=== PATIENT | female | born 1965 | race American Indian/Alaskan Native ===

== ENCOUNTER 2021-07-28 13:50 | Observation (INO) | payer MEDICARE ==
--- NOTE | 2021-07-28 14:26 | Cat Scan Report ---
CT head/brain wo con INDICATION / CLINICAL INFORMATION: 55 years Female; CODE STROKE CALL [phone] Aphasia. TECHNIQUE: Routine CT head without contrast. All CT scans at this location are performed using CT dos e reduction for ALARA by means of automated exposure control. COMPARISON: None. FINDINGS: BRAIN / INTRACRANIAL CONTENTS: The brain appears to demonstrate appropriate attenuation for age. The ventricular system is within normal limits in size and configuration. There is no clear CT evidence o f acute intracranial hemorrhage or significant mass effect. ORBITS: No significant abnormality of visualized orbits. SINUSES / MASTOIDS: There is mild mucosal thickening along the posterior right maxillary sinus. CRANIOCERVICAL JUNCTION: No significant abnormality. ADDITIONAL FINDINGS: None. IMPRESSION: 1. There is no CT evidence of acute intracranial process. The study was specified as code stroke and called emergently to Dr. Davidson in the ER at 1:19 PM Central standard time. Signer Name: Clint Cruz MD Signed: 07/28/2021 2:22 PM Workstation Name: [id number]
--- NOTE | 2021-07-28 15:03 | Consultation ---
Medications and Allergies Allergies Allergy/AdvReac Type Severity Reaction Status Date / Time No Known Allergies Allergy Unverified 07/28/21 13:56 Physical Examination - Vital Signs Vital Signs: Vital Signs Temp Pulse Resp BP Pulse Ox 98 F 106 H 16 130/77 91 07/28/21 14:00 07/28/21 14:00 07/28/21 14:00 07/28/21 14:00 07/28/21 14:00 Assessment and Plan [facility] Consult Note # Demographics Consult Type: Acute Stroke Level 2 (4.5-24 hrs) Patient Location: Emergency Room First Name: Mia Last Name: Jhonny Age: 55 Gender: Female Facility: [facility] Time of Initial Page ( Time): 07/28/2021, 13:33 Time of Return Call ( Time): 07/28/2021, 13:33 # HPI Handedness: Left History: 55F Unknown last well reportedly. She says she does not know what is going on. EMS says patient not speaking and bilateral weakness. Equal strength reported by EMS. No evidence of aphasia. Patient reports feeling nausea. # Scores Time of exam and NIHSS ( Time): 07/28/2021, 13:51 Level of Consciousness 1a: [0] = Alert; keenly responsive LOC Questions 1b: [2] = Answers neither correctly LOC Commands 1c: [0] = Performs both tasks correctly Best Gaze 2: [0] = Normal Visual 3: [0] = No visual loss Facial Palsy 4: [0] = Normal symmetrical movements Motor Arm Left 5a: [0] = No drift Motor Arm Right 5b: [0] = No drift Motor Leg Left 6a: [1] = Drift Motor Leg Right 6b: [1] = Drift Limb Ataxia 7: [0] = Absent Sensory 8: [0] = Normal Best Language 9: [0] = No aphasia Dysarthria 10: [0] = Normal Extinction and Inattention 11: [0] = No abnormality NIHSS Total: 4 VAN Screening: Negative # Exam SBP: 148 DBP: 82 # Data Glucose: 207 per EMS # Assessment Impression: Altered Mental Status no clear evidence of stroke, could be encephalopathy due to toxic/metabolic/infectious etiologies. # Plan Thrombolytic/Intervention: NOT IV Thrombolysis or IA Intervention candidate Thrombolytic Exclusion (< 3 hour window): time of onset unclear Thrombolytic Exclusion: > 4.5 hours Intraarterial Exclusion: clinically not consistent with stroke Labs: B12 CBC comprehensive metabolic panel TSH urine drug screen ua Additional Recommendations: If no general medical etiology found or not improivng with medical treamtent, consider MRI brain. Disposition: admit # Logistics Telemedicine: Interactive 2 way audio and visual telecommunication technology was utilized during this visit
[2021-07-28] MEDS ORDERED: SODIUM CHLORIDE 0.9% 1000 ML 1,000 ML IV ONE ×2 (15:55→19:19)
[2021-07-28 16:23] LABS: Basophils # (Auto) 0.1 K/mm3 (0.0-0.1); Basophils % (Auto) 0.7 % (0.0-1.8); Eosinophils # (Auto) 0.1 K/mm3 (0.0-0.4); Eosinophils % (Auto) 0.6 % (0.0-4.3); Hematocrit 37.1 % (30.3-42.9); Hemoglobin 11.8 gm/dl (10.1-14.3); Lymphocytes # (Auto) 1.1 K/mm3 (1.2-5.4); Lymphocytes % (Auto) 9.7 % (13.4-35.0); Mean Corpuscular HGB Conc 32 % (30-34); Mean Corpuscular Volume 87 fl (79-97); Monocytes # (Auto) 0.6 K/mm3 (0.0-0.8); Monocytes % (Auto) 5.8 % (0.0-7.3); Platelet Count 490 K/mm3 (140-440); Red Blood Count 4.29 M/mm3 (3.65-5.03); Red Cell Distribution Width 14.9 % (13.2-15.2)
--- NOTE | 2021-07-28 16:28 | XRay Report ---
CHEST 1 VIEW 07/28/2021 3:23 PM INDICATION / CLINICAL INFORMATION: AMS. COMPARISON: None available. FINDINGS: SUPPORT DEVICES: None. HEART / MEDIASTINUM: No significant abnormality. LUNGS / PLEURA: No significant pulmonary or pleural abnormality. No pneumothorax. ADDITIONAL FINDINGS: No significant additional findings. IMPRESSION: 1. No acute findings. Signer Name: Anders Ceja MD Signed: 07/28/2021 4:24 PM Workstation Name: [id number]
[2021-07-28 16:41] LABS: INR 0.91 (0.87-1.13)
[2021-07-28 16:42] LABS: Partial Thromboplastin Time 24.5 Sec. (24.2-36.6)
[2021-07-28 16:43] LABS: Alanine Aminotransferase 12 units/L (7-56); Albumin 4.2 g/dL (3.9-5); BUN/Creatinine Ratio 8; Blood Urea Nitrogen 7 mg/dL (7-17); Calcium 9.8 mg/dL (8.4-10.2); Hemolysis Index 4
--- NOTE | 2021-07-28 17:53 | Emergency Department Report ---
HPI - General Chief Complaint: Altered Mental Status Time Seen by Provider: 07/28/21 15:44 - HPI HPI: 55-year-old female with no known past medical history brought in by EMS from home due to altered mental status. Apparently this s around noon today. She has had a cough for a few days. She apparently became confused per her family and so 911 was called. There is no family contact information in the chart. The patient is somnolent but awake and oriented to person place and time but not to situation and does not know why she is in the emergency department and seems very confused. She says she has had a cough but denies any other complaints at this time. However, details of the HPI are highly limited due to the patient's current clinical condition. Her Covid vaccination status is unknown. ED Past Medical Hx - Past Medical History Previous Medical History?: Yes - Social History Smoking Status: Current Every Day Smoker Substance Use Type: None - Medications Home Medications: Home Medications Medication Instructions Recorded Confirmed Last Taken Type FLUoxetine HCL [PROzac] 80 mg PO QDAY 07/29/21 07/29/21 07/27/21 History Glycopyrrolate 2 mg PO QDAY 07/29/21 07/29/21 07/27/21 History Propranolol HCl 20 mg PO TID 07/29/21 07/29/21 07/27/21 History Sulfamethoxazole/Trimethoprim 1 each PO BID 2 Days #4 tab 07/29/21 Unknown Rx [Bactrim DS TAB] cloZAPine 400 mg PO QHS 07/29/21 07/29/21 07/27/21 History clonazePAM [ Klonopin] 0.5 mg PO QHS 07/29/21 07/29/21 07/27/21 History metFORMIN [Glucophage] 500 mg PO BID 07/29/21 07/29/21 07/27/21 History ED Review of Systems ROS: Stated complaint: ALTERED MENTAL STATUS Other details as noted in HPI Comment: Unobtainable due to pts medical conditions Physical Exam - Physical Exam Vital Signs: Vital Signs 07/28/21 07/28/21 07/28/21 13:50 14:00 15:24 Temperature 98 F 97.3 F L Pulse Rate 106 H 96 H Respiratory 16 13 Rate Blood Pressure 101/75 Blood Pressure 130/77 [Right] O2 Sat by Pulse 96 91 97 Oximetry 07/28/21 15:53 Temperature 98.7 F Pulse Rate 76 Respiratory 14 Rate Blood Pressure Blood Pressure 112/74 [Right] O2 Sat by Pulse 97 Oximetry Physical Exam: GENERAL: Well developed and well nourished. Somnolent but arousable. HEAD: Normocephalic. No obvious signs of trauma. ENT: Dry mucous membranes. EYES: Extraocular movements are intact. Pupils are equal round and reactive to light bilaterally NECK: Supple. Full ROM is intact. Trachea is midline. LUNGS: Nonlabored breathing. Equal chest rise bilaterally. Clear to auscultation bilaterally. CARDIOVASCULAR: Regular rate and rhythm. No murmurs or rubs. VASCULAR: Cap refill < 2 seconds ABDOMEN: Abdomen is soft and nondistended. There is no significant tenderness, guarding or rebound. SKIN: Skin is warm and dry NEURO: Patient is somnolent but easily arousable to loud voice. She is oriented to person place and time but not to situation. She seems to be confused in conversation. potato spotter II-XII grossly intact. No focal deficits. Normal motor and sensory exam throughout. Normal speech. MUSCULOSKELETAL: No obvious deformities. No significant tenderness. Normal ROM throughout. BACK/SPINE: No midline tenderness or step-offs of the C/T/L spine. No costovertebral angle tenderness. ED Course Vital Signs 07/28/21 07/28/21 07/28/21 13:50 14:00 15:24 Temperature 98 F 97.3 F L Pulse Rate 106 H 96 H Respiratory 16 13 Rate Blood Pressure 101/75 Blood Pressure 130/77 [Right] O2 Sat by Pulse 96 91 97 Oximetry 07/28/21 15:53 Temperature 98.7 F Pulse Rate 76 Respiratory 14 Rate Blood Pressure Blood Pressure 112/74 [Right] O2 Sat by Pulse 97 Oximetry ED Medical Decision Making - Lab Data Result diagrams: 07/28/21 16:02 07/29/21 04:33 Lab Results 07/28/21 07/28/21 07/28/21 Range/Units 16:02 16:02 16:02 WBC 11.1 H (4.5-11.0) K/mm3 RBC 4.29 (3.65-5.03) M/mm3 Hgb 11.8 (10.1-14.3) gm/dl Hct 37.1 (30.3-42.9) % MCV 87 (79-97) fl MCH 28 (28-32) pg MCHC 32 (30-34) % RDW 14.9 (13.2-15.2) % Plt Count 490 H (140-440) K/mm3 Lymph % (Auto) 9.7 L (13.4-35.0) % [place] % (Auto) 5.8 (0.0-7.3) % Eos % (Auto) 0.6 (0.0-4.3) % Baso % (Auto) 0.7 (0.0-1.8) % Lymph # (Auto) 1.1 L (1.2-5.4) K/mm3 [place] # (Auto) 0.6 (0.0-0.8) K/mm3 Eos # (Auto) 0.1 (0.0-0.4) K/mm3 Baso # (Auto) 0.1 (0.0-0.1) K/mm3 Seg Neutrophils % 83.2 H (40.0-70.0) % Seg Neutrophils # 9.3 H (1.8-7.7) K/mm3 PT 13.3 (12.2-14.9) Sec. INR 0.91 (0.87-1.13) APTT 24.5 (24.2-36.6) Sec. Sodium 140 (137-145) mmol/L Potassium 4.2 (3.6-5.0) mmol/L Chloride 102.5 (98-107) mmol/L Carbon Dioxide 23 (22-30) mmol/L Anion Gap 19 mmol/L BUN 7 (7-17) mg/dL Creatinine 0.9 (0.6-1.2) mg/dL Estimated GFR > 60 ml/min BUN/Creatinine Ratio 8 % Glucose 79 (65-100) mg/dL POC Glucose (70-105) mg/dL Calcium 9.8 (8.4-10.2) mg/dL Magnesium (1.7-2.3) mg/dL Total Bilirubin < 0.20 (0.1-1.2) mg/dL AST 15 (5-40) units/L ALT 12 (7-56) units/L Alkaline Phosphatase 88 (35-129) units/L Ammonia (25-60) umol/L Troponin T (0.00-0.029) ng/mL NT-Pro-B Natriuret Pep (0-900) pg/mL Total Protein 6.9 (6.3-8.2) g/dL Albumin 4.2 (3.9-5) g/dL Albumin/Globulin Ratio 1.6 % Lipase (13-60) units/L Urine Color (Yellow) Urine Turbidity (Clear) Urine pH (5.0-7.0) Ur Specific [place] (1.003-1.030) Urine Protein (Negative) mg/dL Urine Glucose (UA) (Negative) mg/dL Urine Ketones (Negative) mg/dL Urine Blood (Negative) Urine Nitrite (Negative) Urine Bilirubin (Negative) Urine Urobilinogen (<2.0) mg/dL Ur Leukocyte Esterase (Negative) Urine WBC (Auto) (0.0-6.0) /HPF Urine RBC (Auto) (0.0-6.0) /HPF U Epithel Cells (Auto) (0-13.0) /HPF Urine Bacteria (Auto) (Negative) /HPF Urine WBC Clumps /HPF Urine Mucus /HPF Urine Yeast (Budding) /HPF Acetaminophen (10.0-30.0) ug/mL Plasma/Serum Alcohol (0-0.07) % 07/28/21 07/28/21 07/28/21 Range/Units 16:02 16:02 16:02 WBC (4.5-11.0) K/mm3 RBC (3.65-5.03) M/mm3 Hgb (10.1-14.3) gm/dl Hct (30.3-42.9) % MCV (79-97) fl MCH (28-32) pg MCHC (30-34) % RDW (13.2-15.2) % Plt Count (140-440) K/mm3 Lymph % (Auto) (13.4-35.0) % [place] % (Auto) (0.0-7.3) % Eos % (Auto) (0.0-4.3) % Baso % (Auto) (0.0-1.8) % Lymph # (Auto) (1.2-5.4) K/mm3 [place] # (Auto) (0.0-0.8) K/mm3 Eos # (Auto) (0.0-0.4) K/mm3 Baso # (Auto) (0.0-0.1) K/mm3 Seg Neutrophils % (40.0-70.0) % Seg Neutrophils # (1.8-7.7) K/mm3 PT (12.2-14.9) Sec. INR (0.87-1.13) APTT (24.2-36.6) Sec. Sodium (137-145) mmol/L Potassium (3.6-5.0) mmol/L Chloride (98-107) mmol/L Carbon Dioxide (22-30) mmol/L Anion Gap mmol/L BUN (7-17) mg/dL Creatinine (0.6-1.2) mg/dL Estimated GFR ml/min BUN/Creatinine Ratio % Glucose (65-100) mg/dL POC Glucose (70-105) mg/dL Calcium (8.4-10.2) mg/dL Magnesium 1.90 (1.7-2.3) mg/dL Total Bilirubin (0.1-1.2) mg/dL AST (5-40) units/L ALT (7-56) units/L Alkaline Phosphatase (35-129) units/L Ammonia 23.0 L (25-60) umol/L Troponin T < 0.010 (0.00-0.029) ng/mL NT-Pro-B Natriuret Pep 28.00 (0-900) pg/mL Total Protein (6.3-8.2) g/dL Albumin (3.9-5) g/dL Albumin/Globulin Ratio % Lipase 28 (13-60) units/L Urine Color (Yellow) Urine Turbidity (Clear) Urine pH (5.0-7.0) Ur Specific [place] (1.003-1.030) Urine Protein (Negative) mg/dL Urine Glucose (UA) (Negative) mg/dL Urine Ketones (Negative) mg/dL Urine Blood (Negative) Urine Nitrite (Negative) Urine Bilirubin (Negative) Urine Urobilinogen (<2.0) mg/dL Ur Leukocyte Esterase (Negative) Urine WBC (Auto) (0.0-6.0) /HPF Urine RBC (Auto) (0.0-6.0) /HPF U Epithel Cells (Auto) (0-13.0) /HPF Urine Bacteria (Auto) (Negative) /HPF Urine WBC Clumps /HPF Urine Mucus /HPF Urine Yeast (Budding) /HPF Acetaminophen 5.0 L (10.0-30.0) ug/mL Plasma/Serum Alcohol (0-0.07) % 07/28/21 07/28/21 07/28/21 Range/Units 16:02 16:54 18:19 WBC (4.5-11.0) K/mm3 RBC (3.65-5.03) M/mm3 Hgb (10.1-14.3) gm/dl Hct (30.3-42.9) % MCV (79-97) fl MCH (28-32) pg MCHC (30-34) % RDW (13.2-15.2) % Plt Count (140-440) K/mm3 Lymph % (Auto) (13.4-35.0) % [place] % (Auto) (0.0-7.3) % Eos % (Auto) (0.0-4.3) % Baso % (Auto) (0.0-1.8) % Lymph # (Auto) (1.2-5.4) K/mm3 [place] # (Auto) (0.0-0.8) K/mm3 Eos # (Auto) (0.0-0.4) K/mm3 Baso # (Auto) (0.0-0.1) K/mm3 Seg Neutrophils % (40.0-70.0) % Seg Neutrophils # (1.8-7.7) K/mm3 PT (12.2-14.9) Sec. INR (0.87-1.13) APTT (24.2-36.6) Sec. Sodium (137-145) mmol/L Potassium (3.6-5.0) mmol/L Chloride (98-107) mmol/L Carbon Dioxide (22-30) mmol/L Anion Gap mmol/L BUN (7-17) mg/dL Creatinine (0.6-1.2) mg/dL Estimated GFR ml/min BUN/Creatinine Ratio % Glucose (65-100) mg/dL POC Glucose 78 82 (70-105) mg/dL Calcium (8.4-10.2) mg/dL Magnesium (1.7-2.3) mg/dL Total Bilirubin (0.1-1.2) mg/dL AST (5-40) units/L ALT (7-56) units/L Alkaline Phosphatase (35-129) units/L Ammonia (25-60) umol/L Troponin T (0.00-0.029) ng/mL NT-Pro-B Natriuret Pep (0-900) pg/mL Total Protein (6.3-8.2) g/dL Albumin (3.9-5) g/dL Albumin/Globulin Ratio % Lipase (13-60) units/L Urine Color (Yellow) Urine Turbidity (Clear) Urine pH (5.0-7.0) Ur Specific [place] (1.003-1.030) Urine Protein (Negative) mg/dL Urine Glucose (UA) (Negative) mg/dL Urine Ketones (Negative) mg/dL Urine Blood (Negative) Urine Nitrite (Negative) Urine Bilirubin (Negative) Urine Urobilinogen (<2.0) mg/dL Ur Leukocyte Esterase (Negative) Urine WBC (Auto) (0.0-6.0) /HPF Urine RBC (Auto) (0.0-6.0) /HPF U Epithel Cells (Auto) (0-13.0) /HPF Urine Bacteria (Auto) (Negative) /HPF Urine WBC Clumps /HPF Urine Mucus /HPF Urine Yeast (Budding) /HPF Acetaminophen (10.0-30.0) ug/mL Plasma/Serum Alcohol < 0.01 (0-0.07) % // Range/Units Unknown WBC (4.5-11.0) K/mm3 RBC (3.65-5.03) M/mm3 Hgb (10.1-14.3) gm/dl Hct (30.3-42.9) % MCV (79-97) fl MCH (28-32) pg MCHC (30-34) % RDW (13.2-15.2) % Plt Count (140-440) K/mm3 Lymph % (Auto) (13.4-35.0) % [place] % (Auto) (0.0-7.3) % Eos % (Auto) (0.0-4.3) % Baso % (Auto) (0.0-1.8) % Lymph # (Auto) (1.2-5.4) K/mm3 [place] # (Auto) (0.0-0.8) K/mm3 Eos # (Auto) (0.0-0.4) K/mm3 Baso # (Auto) (0.0-0.1) K/mm3 Seg Neutrophils % (40.0-70.0) % Seg Neutrophils # (1.8-7.7) K/mm3 PT (12.2-14.9) Sec. INR (0.87-1.13) APTT (24.2-36.6) Sec. Sodium (137-145) mmol/L Potassium (3.6-5.0) mmol/L Chloride (98-107) mmol/L Carbon Dioxide (22-30) mmol/L Anion Gap mmol/L BUN (7-17) mg/dL Creatinine (0.6-1.2) mg/dL Estimated GFR ml/min BUN/Creatinine Ratio % Glucose (65-100) mg/dL POC Glucose (70-105) mg/dL Calcium (8.4-10.2) mg/dL Magnesium (1.7-2.3) mg/dL Total Bilirubin (0.1-1.2) mg/dL AST (5-40) units/L ALT (7-56) units/L Alkaline Phosphatase (35-129) units/L Ammonia (25-60) umol/L Troponin T (0.00-0.029) ng/mL NT-Pro-B Natriuret Pep (0-900) pg/mL Total Protein (6.3-8.2) g/dL Albumin (3.9-5) g/dL Albumin/Globulin Ratio % Lipase (13-60) units/L Urine Color Yellow (Yellow) Urine Turbidity Cloudy (Clear) Urine pH 5.0 (5.0-7.0) Ur Specific [place] 1.013 (1.003-1.030) Urine Protein <15 mg/dl (Negative) mg/dL Urine Glucose (UA) 150 (Negative) mg/dL Urine Ketones Neg (Negative) mg/dL Urine Blood Neg (Negative) Urine Nitrite Neg (Negative) Urine Bilirubin Neg (Negative) Urine Urobilinogen < 2.0 (<2.0) mg/dL Ur Leukocyte Esterase Sm (Negative) Urine WBC (Auto) 31.0 H (0.0-6.0) /HPF Urine RBC (Auto) 14.0 (0.0-6.0) /HPF U Epithel Cells (Auto) 10.0 (0-13.0) /HPF Urine Bacteria (Auto) 1+ (Negative) /HPF Urine WBC Clumps 2+ /HPF Urine Mucus Few /HPF Urine Yeast (Budding) 1+ /HPF Acetaminophen (10.0-30.0) ug/mL Plasma/Serum Alcohol (0-0.07) % - EKG Data -: EKG Interpreted by Me - EKG Data 07/28/21 20:49 Sinus tachycardia. Normal axis. Normal intervals. No ectopy. No significant ST segment or T wave abnormalities. - Radiology Data Radiology results: report reviewed - Medical Decision Making 55-year-old female brought in for acute onset of altered mental status. Patient was brought in by EMS and there is no family contact information available. Although the patient is oriented to person place and time she is not oriented to situation does not know why she is in the emergency department. Although she seems somnolent and confused she has a nonfocal neurologic exam. She is afebrile with normal vital signs with the exception of heart rate in the 90s. She has dry mucous membranes. She has no abdominal tenderness. Lungs are clear to auscultation. We will proceed with broad work-up with full set of labs, chest x-ray, EKG. Given the acute onset of the patient's symptoms CT of the head was ordered in triage to assess for evidence of stroke, bleed, or mass to explain the patient's acute onset of altered mental status. We will give 1 L of IV fluids for now and reassess Noncon CT of the head reveals no acute abnormalities. Labs reveal no significant leukocytosis or anemia. Creatinine is within normal limits and there are no significant electrolyte abnormalities. Troponin is negative. Chest x-ray reveals no acute abnormalities The nurse informed me that after straight cathing the patient she noted that the patient has very little urine but we will send it for urinalysis. I have ordered an additional 1 L of IV fluids Urinalysis reveals findings most consistent with urinary tract infection. I have ordered 1 dose of IV ceftriaxone. Given the patient's acute encephalopathy and the lack of family contact, we will proceed with admission for further management. Patient was signed out to Dr. Sewell Critical care attestation.: If time is entered above; I have spent that time in minutes in the direct care of this critically ill patient, excluding procedure time. ED Disposition Clinical Impression: UTI (urinary tract infection), Metabolic encephalopathy Disposition: 09 ADMITTED INPATIENT Is pt being admited?: Yes Condition: Stable
[2021-07-28 18:40] LABS: Bacteria,Urine 1+ /HPF (Negative); Bilirubin,Urine NEG (Negative); Blood,Urine NEG (Negative); Color,Urine Yellow (Yellow); Mucus,Urine FEW /HPF; Protein,Urine <15 mg/dL mg/dL (Negative); Urobilinogen,Urine < 2.0 mg/dL (<2.0)
[2021-07-28] MEDS ORDERED: cefTRIAXone/NS 2 GM/100 ML 2 GM/100 ML BAG IV ONE (20:11)
[2021-07-28] MEDS ORDERED: ONDANSETRON 4 MG/2 ML INJ IV PRN (23:31)
[2021-07-28] MEDS ORDERED: ACETAMINOPHEN 325 MG TAB PO PRN (23:31)
[2021-07-28] MEDS ORDERED: MAGNESIUM HYDROXIDE (MOM) ORAL LIQD UDC PO PRN (23:31)
[2021-07-28] MEDS ORDERED: MORPHINE 4 MG/1 ML INJ IV PRN (23:31)
[2021-07-28] MEDS ORDERED: MORPHINE 2 MG/1 ML INJ IV PRN (23:31)
--- NOTE | 2021-07-28 23:42 | History and Physical Report ---
History of Present Illness Date of examination: 07/28/21 Date of admission: 07/28/21 21:33 Chief complaint: Altered Mental Status History of present illness: 55-year-old female with no significant past medical history brought into the emergency room by EMS for evaluation of changes in mental status. Patient was said to have been having some mild cough during the day and later became confused. Family therefore called EMS. Most of the history was gotten from the ER staff as patient is still confused. Family members were were not available. Patient was able to state that she had some cough and chills. It is unclear whether patient is fully vaccinated against COVID-19. Work-up in the emergency room today, chest x-ray shows no acute findings. CT of the head showed no acute findings. Urinalysis however shows some UTI. Patient being admitted for acute encephalopathy. Past History Past Medical History: No medical history Past Surgical History: No surgical history Social history: smoking (Current daily smoker) Family history: no significant family history Medications and Allergies Allergies Allergy/AdvReac Type Severity Reaction Status Date / Time No Known Allergies Allergy Verified 07/28/21 23:38 Active Meds: Active Medications Acetaminophen (Acetaminophen 325 Mg Tab) 650 mg PO Q4H PRN PRN Reason: Pain MILD(1-3)/Fever >100.5/MCMULLEN Heparin Sodium (Porcine) (Heparin 5,000 Unit/1 Ml Vial) 5,000 unit SUB-Q Q8HR STEPHANIE Sodium Chloride (Nacl 0.9% 1000 Ml) 1,000 mls @ 125 mls/hr IV DIRECT STEPHANIE Ceftriaxone Sodium (Rocephin/Ns 1 Gm/50 Ml) 1 gm in 50 mls @ 100 mls/hr IV Q24H STEPHANIE; Protocol Magnesium Hydroxide (Magnesium Hydroxide (Mom) Oral Liqd Udc) 30 ml PO Q4H PRN PRN Reason: Constipation Morphine Sulfate (Morphine 2 Mg/1 Ml Inj) 2 mg IV Q4H PRN PRN Reason: Pain, Moderate (4-6) Morphine Sulfate (Morphine 4 Mg/1 Ml Inj) 4 mg IV Q4H PRN PRN Reason: Pain , Severe (7-10) Ondansetron HCl (Ondansetron 4 Mg/2 Ml Inj) 4 mg IV Q8H PRN PRN Reason: Nausea And Vomiting Sodium Chloride (Sodium Chloride 0.9% 10 Ml Flush Syringe) 10 ml IV BID STEPHANIE Sodium Chloride (Sodium Chloride 0.9% 10 Ml Flush Syringe) 10 ml IV PRN PRN PRN Reason: LINE FLUSH Review of Systems ROS unobtainable: due to mental status Exam - Constitutional Vitals: Temp Pulse Resp BP Pulse Ox 97.5 F L 77 16 116/72 97 07/28/21 18:31 07/28/21 18:31 07/28/21 18:31 07/28/21 18:31 07/28/21 18:31 General appearance: Present: no acute distress, well-nourished - EENT Eyes: Present: PERRL, EOM intact, scleral icterus ENT: hearing intact, clear oral mucosa, dentition normal - Neck Neck: Present: supple, normal ROM - Respiratory Respiratory effort: normal Respiratory: bilateral: CTA - Cardiovascular Rhythm: regular Heart Sounds: Present: S1 & S2. Absent: gallop, systolic murmur, diastolic m urmur, rub, click - Extremities Extremities: no ischemia, pulses intact, pulses symmetrical, No edema, normal temperature, Full ROM Peripheral Pulses: within normal limits - Abdominal General gastrointestinal: Present: soft, non-tender, non-distended, normal bowel sounds. Absent: mass - Integumentary Integumentary: Present: clear, warm, dry, normal turgor. Absent: rash - Musculoskeletal Musculoskeletal: strength equal bilaterally - Psychiatric Psychiatric: appropriate mood/affect, intact judgment & insight, memory intact, cooperative - Neurologic Neurologic: CNII-XII intact, no focal deficits, moves all extremities HEART Score - HEART Score Troponin: Troponin T < 0.010 ng/mL (0.00-0.029) 07/28/21 16:02 Results - Labs CBC & Chem 7: 07/28/21 16:02 07/28/21 16:02 Labs: Abnormal lab results 07/28/21 07/28/21 07/28/21 Range/Units 16:02 16:02 16:02 WBC 11.1 H (4.5-11.0) K/mm3 Plt Count 490 H (140-440) K/mm3 Lymph % (Auto) 9.7 L (13.4-35.0) % Lymph # (Auto) 1.1 L (1.2-5.4) K/mm3 Seg Neutrophils % 83.2 H (40.0-70.0) % Seg Neutrophils # 9.3 H (1.8-7.7) K/mm3 Ammonia 23.0 L (25-60) umol/L Urine WBC (Auto) (0.0-6.0) /HPF Acetaminophen 5.0 L (10.0-30.0) ug/mL 07/28/21 Range/Units Unknown WBC (4.5-11.0) K/mm3 Plt Count (140-440) K/mm3 Lymph % (Auto) (13.4-35.0) % Lymph # (Auto) (1.2-5.4) K/mm3 Seg Neutrophils % (40.0-70.0) % Seg Neutrophils # (1.8-7.7) K/mm3 Ammonia (25-60) umol/L Urine WBC (Auto) 31.0 H (0.0-6.0) /HPF Acetaminophen (10.0-30.0) ug/mL Assessment and Plan - Patient Problems (1) Metabolic encephalopathy Current Visit: Yes Status: Acute Plan to address problem: Possibly secondary to underlying infection. Will monitor mental status. (2) UTI (urinary tract infection) Current Visit: Yes Status: Acute Plan to address problem: Patient placed on empiric IV antibiotics. Will await urine culture results. (3) DVT prophylaxis Current Visit: Yes Status: Acute Plan to address problem: Patient placed on subcutaneous heparin. (4) Full code status Current Visit: Yes Status: Acute Plan to address problem: Patient is full code.
[2021-07-28] MEDS ORDERED: SODIUM CHLORIDE 0.9% 1000 ML 1,000 ML IV SCH (23:45)
[2021-07-29] MEDS: HEPARIN 5,000 UNIT/1 ML VIAL SUB-Q SCH ×2 (05:38→14:31)
[2021-07-29 06:19] LABS: INR 0.97 (0.87-1.13)
[2021-07-29 06:25] LABS: BUN/Creatinine Ratio 6; Blood Urea Nitrogen 5 mg/dL (7-17); Calcium 8.7 mg/dL (8.4-10.2); Hemolysis Index 1
--- NOTE | 2021-07-29 09:00 | Progress Note ---
Hospitalist Physical - Constitutional Vitals: Temp Pulse Resp BP Pulse Ox 98.0 F 98 H 16 118/69 98 07/29/21 08:21 07/29/21 08:21 07/29/21 08:21 07/29/21 08:21 07/29/21 08:21 General appearance: Present: no acute distress, well-nourished HEART Score - HEART Score Troponin: Troponin T < 0.010 ng/mL (0.00-0.029) 07/28/21 16:02 Results - Labs CBC & Chem 7: 07/28/21 16:02 07/29/21 04:33 Labs: Laboratory Last Values WBC 11.1 K/mm3 (4.5-11.0) H 07/28/21 16:02 RBC 4.29 M/mm3 (3.65-5.03) 07/28/21 16:02 Hgb 11.8 gm/dl (10.1-14.3) 07/28/21 16:02 Hct 37.1 % (30.3-42.9) 07/28/21 16:02 MCV 87 fl (79-97) 07/28/21 16:02 MCH 28 pg (28-32) 07/28/21 16:02 MCHC 32 % (30-34) 07/28/21 16:02 RDW 14.9 % (13.2-15.2) 07/28/21 16:02 Plt Count 490 K/mm3 (140-440) H 07/28/21 16:02 Lymph % (Auto) 9.7 % (13.4-35.0) L 07/28/21 16:02 [place] % (Auto) 5.8 % (0.0-7.3) 07/28/21 16:02 Eos % (Auto) 0.6 % (0.0-4.3) 07/28/21 16:02 Baso % (Auto) 0.7 % (0.0-1.8) 07/28/21 16:02 Lymph # (Auto) 1.1 K/mm3 (1.2-5.4) L 07/28/21 16:02 [place] # (Auto) 0.6 K/mm3 (0.0-0.8) 07/28/21 16:02 Eos # (Auto) 0.1 K/mm3 (0.0-0.4) 07/28/21 16:02 Baso # (Auto) 0.1 K/mm3 (0.0-0.1) 07/28/21 16:02 Seg Neutrophils % 83.2 % (40.0-70.0) H 07/28/21 16:02 Seg Neutrophils # 9.3 K/mm3 (1.8-7.7) H 07/28/21 16:02 PT 14.0 Sec. (12.2-14.9) 07/29/21 04:33 INR 0.97 (0.87-1.13) 07/29/21 04:33 APTT 24.5 Sec. (24.2-36.6) 07/28/21 16:02 Sodium 143 mmol/L (137-145) 07/29/21 04:33 Potassium 3.7 mmol/L (3.6-5.0) 07/29/21 04:33 Chloride 108.3 mmol/L (98-107) H 07/29/21 04:33 Carbon Dioxide 22 mmol/L (22-30) 07/29/21 04:33 Anion Gap 16 mmol/L 07/29/21 04:33 BUN 5 mg/dL (7-17) L 07/29/21 04:33 Creatinine 0.8 mg/dL (0.6-1.2) 07/29/21 04:33 Estimated GFR > 60 ml/min 07/29/21 04:33 BUN/Creatinine Ratio 6 % 07/29/21 04:33 Glucose 86 mg/dL (65-100) 07/29/21 04:33 POC Glucose 104 mg/dL (70-105) 07/29/21 08:24 Calcium 8.7 mg/dL (8.4-10.2) 07/29/21 04:33 Magnesium 1.90 mg/dL (1.7-2.3) 07/28/21 16:02 Total Bilirubin < 0.20 mg/dL (0.1-1.2) 07/28/21 16:02 AST 15 units/L (5-40) 07/28/21 16:02 ALT 12 units/L (7-56) 07/28/21 16:02 Alkaline Phosphatase 88 units/L (35-129) 07/28/21 16:02 Ammonia 23.0 umol/L (25-60) L 07/28/21 16:02 Troponin T < 0.010 ng/mL (0.00-0.029) 07/28/21 16:02 NT-Pro-B Natriuret Pep 28.00 pg/mL (0-900) 07/28/21 16:02 Total Protein 6.9 g/dL (6.3-8.2) 07/28/21 16:02 Albumin 4.2 g/dL (3.9-5) 07/28/21 16:02 Albumin/Globulin Ratio 1.6 % 07/28/21 16:02 Lipase 28 units/L (13-60) 07/28/21 16:02 Urine Color Yellow (Yellow) 07/28/21 Unknown Urine Turbidity Cloudy (Clear) 07/28/21 Unknown Urine pH 5.0 (5.0-7.0) 07/28/21 Unknown Ur Specific [place] 1.013 (1.003-1.030) 07/28/21 Unknown Urine Protein <15 mg/dl mg/dL (Negative) 07/28/21 Unknown Urine Glucose (UA) 150 mg/dL (Negative) 07/28/21 Unknown Urine Ketones Neg mg/dL (Negative) 07/28/21 Unknown Urine Blood Neg (Negative) 07/28/21 Unknown Urine Nitrite Neg (Negative) 07/28/21 Unknown Urine Bilirubin Neg (Negative) 07/28/21 Unknown Urine Urobilinogen < 2.0 mg/dL (<2.0) 07/28/21 Unknown Ur Leukocyte Esterase Sm (Negative) 07/28/21 Unknown Urine WBC (Auto) 31.0 /HPF (0.0-6.0) H 07/28/21 Unknown Urine RBC (Auto) 14.0 /HPF (0.0-6.0) 07/28/21 Unknown U Epithel Cells (Auto) 10.0 /HPF (0-13.0) 07/28/21 Unknown Urine Bacteria (Auto) 1+ /HPF (Negative) 07/28/21 Unknown Urine WBC Clumps 2+ /HPF 07/28/21 Unknown Urine Mucus Few /HPF 07/28/21 Unknown Urine Yeast (Budding) 1+ /HPF 07/28/21 Unknown Acetaminophen 5.0 ug/mL (10.0-30.0) L 07/28/21 16:02 Plasma/Serum Alcohol < 0.01 % (0-0.07) 07/28/21 16:02 Microbiology: Microbiology 07/28/21 16:02 Peripheral/Venous Blood Culture - Preliminary Culture in Progress 07/28/21 16:02 Peripheral/Venous Blood Culture - Preliminary Culture in Progress Active Medications - Current Medications Current Medications: Generic Name Dose Route Start Last Admin Trade Name Freq PRN Reason Stop Dose Admin Acetaminophen 650 mg 07/28/21 23:31 Acetaminophen 325 Mg Tab PO Q4H PRN Pain MILD(1-3)/Fever >100.5/MCMULLEN Heparin Sodium (Porcine) 5,000 unit 07/29/21 06:00 07/29/21 05:38 Heparin 5,000 Unit/1 Ml Vial SUB-Q Not Given Q8HR STEPHANIE Sodium Chloride 1,000 mls @ 125 mls/hr 07/28/21 23:45 07/29/21 05:39 Nacl 0.9% 1000 Ml IV 125 mls/hr DIRECT SETPHANIE Administration Ceftriaxone Sodium 1 gm in 50 mls @ 100 mls/hr 07/29/21 22:00 Rocephin/Ns 1 Gm/50 Ml IV Q24H STEPHANIE Protocol Magnesium Hydroxide 30 ml 07/28/21 23:31 Magnesium Hydroxide (Mom) Oral Liqd Udc PO Q4H PRN Constipation Morphine Sulfate 2 mg 07/28/21 23:31 Morphine 2 Mg/1 Ml Inj IV Q4H PRN Pain, Moderate (4-6) Morphine Sulfate 4 mg 07/28/21 23:31 Morphine 4 Mg/1 Ml Inj IV Q4H PRN Pain , Severe (7-10) Ondansetron HCl 4 mg 07/28/21 23:31 Ondansetron 4 Mg/2 Ml Inj IV Q8H PRN Nausea And Vomiting Sodium Chloride 10 ml 07/29/21 10:00 Sodium Chloride 0.9% 10 Ml Flush Syringe IV BID STEPHANIE Sodium Chloride 10 ml 07/28/21 23:31 Sodium Chloride 0.9% 10 Ml Flush Syringe IV PRN PRN LINE FLUSH
[2021-07-29 12:25] VITALS: BP 117/73
--- NOTE | 2021-07-29 12:46 | Discharge Summary ---
Providers - Providers Date of Admission: 07/28/21 21:33 Attending physician: CARL PATTEN MD Primary care physician: [employer]ANSCRIBER Hospitalization Condition: Stable Exam - Constitutional Vitals: Temp Pulse Resp BP Pulse Ox 97.9 F 93 H 16 117/73 98 07/29/21 11:38 07/29/21 11:38 07/29/21 11:38 07/29/21 11:38 07/29/21 11:38 Plan Care Plan Goals: Please follow-up with your primary care provider within 1 week. We have prescribed you an antibiotic. Please make sure you take it as prescribed and you complete the bottle. Follow up with: PRIMARY CAREMD [Primary Care Provider] - 3-5 Days Prescriptions: Sulfamethoxazole/Trimethoprim [Bactrim DS TAB] 1 each PO BID 2 Days #4 tab
[2021-07-29] MEDS ORDERED: cefTRIAXone/NS 1 GM/50 ML 1 GM/50 ML BAG IV SCH (22:00)
--- NOTE | 2021-07-30 12:58 | Electrocardiograph Report ---
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
== END 2021-07-29 17:35 | disposition home or self-care (01) ==
LOC: ED 13:50 → 3A 21:33 → INTOOBSV 21:33 → 4A 23:48
PROVIDERS: ADMIT Internal Medicine Geriatric Medicine; ATTEND Student in an Organized Health Care Education/Training Program
DX: G93.41 Metabolic encephalopathy (principal); N39.0 Urinary tract infection, site not specified; F17.210 Nicotine dependence, cigarettes, uncomplicated; Z79.899 Other long term (current) drug therapy; Z98.890 Other specified postprocedural states
CPT/HCPCS: 36415; 70450; 71045; 80048; 80053; 81001; 82140; 82962; 83690; 83735; 83880; 84484; 85025; 85610; 85730; 87040; 93005; 96361; 96365; 96372; 99285; G0378; J0696; J1644; J7030; 80320; 87086; Q0162; G0480